=== PATIENT | female | born 2000 | race Hispanic/Latino ===

== ENCOUNTER 2018-11-22 21:03 | Emergency (ER) | payer SELFPAY ==
--- NOTE | 2018-11-22 22:46 | RAD ---
EXAM: CHEST TWO VIEWS: History: Cough FINDINGS: Patchy parenchymal changes in the posterior basal segment of the left lower lobe, evidence for pneumo max. Heart size is normal. Right lung is clear. IMPRESSION: Evidence for left lower lobe pneumonia. POS: [facility]
[2018-11-22] MEDS ORDERED: Azithromycin 250 MG TAB ONE (23:29)
== END 2018-11-22 23:42 | disposition home or self-care (01) ==
LOC: ERS 21:03
DX: J18.9 Pneumonia, unspecified organism (principal)
CPT/HCPCS: 71046; 94640; J7620